=== PATIENT | male | born 1940 | race Caucasian/White ===

== ENCOUNTER 2017-03-05 10:50 | Observation (INO) | payer MEDICARE, BC ==
--- NOTE | ~2017-03-05 | OP ---
Record Of Operation [facility] [address] [place]. [address] NAME: TITO STUART 111 : 42 STATUS : ADM Misti PAT#: [id number] AGE: 76 ADM/REG DATE : 03/05/17 MR#: [id number] REPORT SERV DATE: 03/06/17 DICTATED BY: LEE NEWBY DATE: 03/05/17 REPORT STATUS : Draft TRANSCRIBED BY: MODL DATE: 03/05/17 DATE OF PROCEDURE: 03/05/2017 PREOPERATIVE DIAGNOSIS: Herniated nucleus polyposis, spinal stenosis, C4-5 and C5-6. POSTOPERATIVE DIAGNOSIS: Herniated nucleus polyposis, spinal stenosis, C4-5 and C5-6. PROCEDURES: 1. Microscopic and navigation-assisted surgery. 2. Anterior cervical diskectomy, foraminotomy, C4-5, C5-6. 3. Interbody fusion with cortical cancellous allograft C4-5 and C5-6. 4. anterior instrumentation with Venture plating, C4 through C6. SURGEON: Lee Newby D.O. HOMICIDE SQUAD SERGEANT: Marin Castellon. ANESTHESIA: General. ESTIMATED BLOOD LOSS: 20 mL. INDICATIONS FOR SURGERY: A 76-year-old male, with right-sided shoulder and arm pain. He has a rotator cuff tear which actually was scheduled to be repaired with Dr. Day today, but he had a sudden onset of severe pain in his right shoulder around the scapula down to his arm, and below the elbow to the forearm and hand. The pain was severe, he still had the worst pain around the shoulder blade. The pain was 9/10. He could not sleep, he could not do anything, and the pain was definitely much different and he had with his shoulder. MRI was obtained which shows some lmdi-cz-[id number] disk herniation/stenosis on the right of C3-4, more disk herniation, stenosis at L4-5 more toward the left, and he does have some left- sided symptoms, but the most significant finding was the large herniation impingement with kaezkxyt-gq-[id number] narrowing on the right at C5-6. The patient could not take the pain of the neck, shoulder, and arm, and wanted to proceed DICTATION ENDS HERE NOMI/CALVIN Lee Newby D.O. / [id number] CC: Lee Newby D.O. Record Of Operation [address] [place]. [address] NAME: TITO STUART 111 : 42 STATUS : ADM Misti PAT#: [id number] AGE: 76 ADM/REG DATE : 03/05/17 MR#: [id number] REPORT SERV DATE: 03/06/17 DICTATED BY: LEE NEWBY DATE: 03/05/17 REPORT STATUS : Draft TRANSCRIBED BY: MODL DATE: 03/05/17 MARIA D SPEAR
--- NOTE | ~2017-03-05 | OP ---
Record Of Operation [facility] [address] [place]. [address] NAME: TITO STUART 111 : 42 STATUS : DIS Misti PAT#: [id number] AGE: 76 ADM/REG DATE : 03/05/17 MR#: [id number] REPORT SERV DATE: 03/12/17 DICTATED BY: BHUPINDER NEWBY DATE: 03/11/17 REPORT STATUS : Draft TRANSCRIBED BY: MODL DATE: 03/11/17 DATE OF PROCEDURE: 03/05/2017 ADDENDUM: For some reason, part of this surgery was left out. There is also mistakes. I put in the indication for surgery and all of that should be recopied, okay. Half way through the first paragraph, it says: An MRI was obtained, which shows some mild to moderate disk herniation stenosis on the right at C3-C4, more disk herniation stenosis should be C4-C5 not L4-L5 toward the left. DESCRIPTION OF PROCEDURE: The patient was identified in preop holding area, antibiotic prophylaxis given. The patient brought to the operative suite. General anesthetic including endotracheal intubation was administered. He was in a supine position on fluoroscopic Gus spine frame, bony prominences were carefully padded. A small bolster was placed behind the scapula. The Meridian fixation attached to the Gus bed and the [employer] navigational registration frame attached to the Meridian. Isolation drapes were placed. The neck was scrubbed with Hibiclens solution. DuraPrep was painted. Sterile drapes applied. Intraoperative CT scan with O-arm obtained. CT information used to register navigational system. With navigational assistance, I identified C4-C5 and C5-C6. The platysma was incised in line with the skin incision. The superficial layer of the deep cervical fascia released along the anterior border of sternocleidomastoid. Blunt dissection carried out to the retropharyngeal space where the longus coli muscles were subperiosteally elevated. Retractors were placed. I re-identified the correct level of surgery intraoperatively. The [place] distractor pins were placed initially in C5 and C6. The microscope was sterilely draped and used throughout the remainder of procedure. I debrided the anterior osteophytes. Diskectomy was carried out with curettes and rongeurs. I gently widened the disk space of the length from anterior to posterior. The foraminotomy was carried out by you, debridement, hypertrophy, the uncinate processes with a 3 mm theresa bur, 2 mm theresa bur, and a 1 mm [place] rongeur, which was used to take down the posterior longitudinal ligament completely. I completely decompressed both foramen removing the disk material and this spondylosis. The width, depth, and height of the disk space was then measured. A wedge-shaped cortical cancellous allograft was placed in the interbody space. Traction was released locking the graft in good position. I then moved to C4-C5 and repeated the same identical steps with anterior diskectomy, a bilateral foraminotomy and decompression removing the disk and the spurring, and that was present. The interbody fusion was carried out in the identical manner. Finally, a 6-hole Venture plate placed over the bodies of C4, C5, and C6 properly aligned in the midline. The 6 holes were drilled. The locking screws inserted, providing rigid Record Of Operation [address] [address] NAME: TITO STUART 111 : 42 STATUS : DIS Misti PAT#: [id number] AGE: 76 ADM/REG DATE : 03/05/17 MR#: [id number] REPORT SERV DATE: 03/12/17 DICTATED BY: BHUPINDER NEWBY DATE: 03/11/17 REPORT STATUS : Draft TRANSCRIBED BY: CALVIN DATE: 03/11/17 stability. AP and lateral x-ray showed excellent position of the implants. The wounds were irrigated. The wound was very dry. There was no bleeding. The platysma was closed with a running 3-0 Vicryl suture. The subcutaneous tissue closed with 3-0 Vicryl suture and subcuticular 4-0 PDS used for skin closure. Sterile dressings applied. The patient awakened, extubated, taken to recovery room in satisfactory condition having tolerated the procedure well. NOMI/CALVIN Bhupinder Newby D.O. / [id number] CC: Jerry Benítez CHELSEY
[~2017-03-05 10:50] MED LIST: AMB10 PO; APRES25; COZ50 PO; FERROUS SULF325 M1 PO; HYT2; INDE120LA PO; L20 PO; LOPID6; METHOC500B PO; NORV5 PO; TRAZ50 PO; [UNRECOGNIZED DRUG - OTHER]
[2017-03-05 12:06] LABS: BASOPHILS 0.4 %; BASOPHILS ABSOLUTE 0.03 10/3/uL (0.0-0.16); EOSINOPHILS 4.8 %; EOSINOPHILS ABSOLUTE 0.36 10/3/uL (0.0-0.53); HEMATOCRIT 38.3 % (40.0-51.0); HEMOGLOBIN 12.7 g/dL (13.6-17.8); IMMATURE GRANULOCYTES 0.4 %; IMMATURE GRANULOCYTES ABSOLUTE 0.03 10/3/uL (0.0-0.11); LYMPHOCYTES 20.2 %; LYMPHOCYTES ABSOLUTE 1.52 10/3/uL (0.67-4.30); MANUAL DIFF NO %; MEAN CORPUS HGB CONC 33.2 g/dL (32.0-36.0); MEAN CORPUSCULAR HEMOGLOB 29.6 pg (26.0-34.0); MEAN CORPUSCULAR VOLUME 89.3 fL (80-100); MONOCYTES 11.6 %; MONOCYTES ABSOLUTE 0.87 10/3/uL (0.21-1.20); NEUTROPHILS 62.6 %; PLATELET COUNT 254 10/3/uL (150-400); RBC DISTRIBUTION WIDTH 14.6 % (12.0-16.0); RED CELL COUNT 4.29 10/6/uL (4.7-6.1); WHITE BLOOD CELLS 7.5 10/3/uL (4.5-10.5)
[2017-03-05 12:25] LABS: BUN (BLOOD UREA NITROGEN) 44 MG/DL (6-23); CALCIUM, SERUM 9.3 MG/DL (8.5-10.4); CHLORIDE, SERUM 110 MMOL/L (96-112); CO2 (CARBON DIOXIDE) 21 MMOL/L (24-34); CREATININE 1.99 MG/DL (0.70-1.30); GFR AFRICAN AMERICAN 37 ML/MIN (>=60); GFR NON AFRICAN AMERICAN 32 ML/MIN (>=60); GLUCOSE, SERUM 99 MG/DL (60-99); POTASSIUM, SERUM 4.9 MMOL/L (3.5-5.3); SODIUM, SERUM 141 MMOL/L (135-148)
[2017-03-05] MEDS ORDERED: SORIATANE25 MG PO (22:28)
[2017-03-05] MEDS ORDERED: FERROUS SULF325 M1 PO (22:29)
[2017-03-05] MEDS ORDERED: NORV5 PO (22:29)
[2017-03-05] MEDS ORDERED: L20 PO (22:30)
[2017-03-05] MEDS ORDERED: LOPID6 PO (22:30)
[2017-03-05] MEDS ORDERED: APRES25 PO ×2 (22:30)
[2017-03-05] MEDS ORDERED: METHOC500B PO (22:31)
[2017-03-05] MEDS ORDERED: COZ50 PO (22:31)
[2017-03-05] MEDS ORDERED: TRAZ50 PO (22:32)
[2017-03-05] MEDS ORDERED: INDE80LA PO (22:32)
[2017-03-05] MEDS ORDERED: HYT2 PO (22:32)
[2017-03-05] MEDS ORDERED: AMB5 PO (22:32)
[2017-03-05] MEDS ORDERED: TEMOVATE CREAM30 GM TOP (22:36)
[2017-03-05] MEDS ORDERED: VITAMIN B PO (22:37)
[2017-03-05] MEDS ORDERED: VITAMIN D PO (22:37)
[2017-03-05] MEDS ORDERED: ASAB PO (22:37)
[2017-03-05] MEDS ORDERED: TURMERIC PO (22:37)
[2017-03-05] MEDS ORDERED: NORCO1 TA1 PO (22:39)
[2017-03-06] MEDS ORDERED: PERCOCET 7.5/321 TAB PO (12:16)
[2017-03-06] MEDS ORDERED: METHOC750B PO (12:16)
[2017-06-09] MEDS ORDERED: NEUR100 PO (10:46)
[2017-06-09] MEDS ORDERED: FLONASE (10:47)
[2017-06-09] MEDS ORDERED: PCET (10:48)
== END 2017-03-06 14:21 | disposition home or self-care (01) ==
LOC: SDC 10:50 → SDC/OF 16:56 → 3SO 17:51
PROVIDERS: Orthopaedic Surgery Orthopaedic Surgery of the Spine
PROC: 0RG20J0 Fusion of 2 or more Cervical Vertebral Joints with Synthetic Substitute, Anterior Approach, Anterior Column, Open Approach (ICD-10-PCS; 2017-03-05)
PROC: 0RB30ZZ Excision of Cervical Vertebral Disc, Open Approach (ICD-10-PCS; principal; 2017-03-05 12:45)
PROC: 0RG20K0 Fusion of 2 or more Cervical Vertebral Joints with Nonautologous Tissue Substitute, Anterior Approach, Anterior Column, Open Approach (ICD-10-PCS; 2017-03-05 12:45)
DX: M50.121 Cervical disc disorder at C4-C5 level with radiculopathy (principal); M50.122 Cervical disc disorder at C5-C6 level with radiculopathy; M48.02 Spinal stenosis, cervical region; G47.33 Obstructive sleep apnea (adult) (pediatric); I12.9 Hypertensive chronic kidney disease with stage 1 through stage 4 chronic kidney disease, or unspecified chronic kidney disease; N18.3 Chronic kidney disease, stage 3 (moderate); D64.9 Anemia, unspecified; Z99.89 Dependence on other enabling machines and devices; Z79.899 Other long term (current) drug therapy; Z98.890 Other specified postprocedural states; Z90.49 Acquired absence of other specified parts of digestive tract
CPT/HCPCS: 80048; 82962; 85025; 87641; 88304; 88311; 93005; 96374; 96375; 96376; A9270-GY; C1713; C1768; G0378; J0690; J2250; J2405; J2710; J3010; J3370